=== PATIENT | female | born 1940 | race African-American/Black ===

== ENCOUNTER 2017-12-30 20:54 | Emergency (ER) | payer MEDICARE ==
[~2017-12-30] VITALS: Ht 167.6 cm; Wt 81.8 kg
[2017-12-30 21:38] LABS: HEMATOCRIT 36.9 % (37.0-47.0); HEMOGLOBIN 11.7 g/dl (12.0-16.0); IMMATURE GRANULOCYTES 0.2 % (0.0-5.0); MEAN CELL VOLUME 94.1 fL CALC (80.0-100.0); MEAN CORPUSCULAR HGB 29.8 pG CALC (26.0-32.0); MEAN CORPUSCULAR HGB CONC 31.7 g/L CALC (32.0-36.0); NEUT# 2.53 thou/uL (2.00-7.15); RED BLOOD COUNT 3.92 mill/uL (4.20-5.60); RED CELL DISTRI WIDTH 12.5 % (11.5-15.5)
[2017-12-30 21:53] LABS: URINE BILIRUBIN - DIPSTICK NEGATIVE (NEGATIVE); URINE BLOOD DIPSTICK TRACE-INTACT (NEGATIVE); URINE COLOR YELLOW; URINE GLUCOSE - DIPSTICK NEGATIVE (NEGATIVE); URINE KETONE NEGATIVE (NEGATIVE); URINE NITRITE - DIPSTICK NEGATIVE (Negative); URINE PH 5.5 (4.5-8.0); URINE PROTEIN - DIPSTICK NEGATIVE (NEG-TRACE); URINE SPECIFIC GRAVITY >=1.030; URINE UROBILINOGEN - DIPSTICK 0.2 E.U./dL (0.2)
[2017-12-30 21:55] LABS: URINE CLARITY HAZY; URINE LEUK ESTERASE SMALL (NEGATIVE)
[2017-12-30 21:57] LABS: ALBUMIN 3.7 g/dL (3.2-5.0); ALKALINE PHOSPHATASE 81 u/l (38-126); ANION GAP 10 (6-22 (CALC)); BILIRUBIN, TOTAL 0.2 mg/dL (0.0-1.4); BUN 17 mg/dL (8-23); BUN/CREATININE RATIO 23 (12-20 (CALC)); CARBON DIOXIDE 31 mmol/l (22-30); CHLORIDE 102 mmol/l (95-108); CREATININE 0.8 mg/dL (0.5-1.0); GFR > 60 ML/MIN (>=60 (CALC)); GFR FOR AFR.AMER. > 60 ML/MIN (>=60 (CALC)); SGOT/AST 20 u/l (9-36); SGPT/ALT 23 u/l (11-66); SODIUM 140 mmol/l (137-146); TOTAL PROTEIN 6.6 g/dL (6.3-8.2)
[2017-12-30 22:01] LABS: URINE SQUAMOUS EPITHELIAL CELL FEW EPI/hpf (0-FEW); URINE WBC 20-50 WBC/hpf (0-5)
[2017-12-31] MEDS ORDERED: MEDDOSEPAK PO (00:15)
[2017-12-31] MEDS ORDERED: NAPROSYN500 MG PO (00:15)
[2017-12-31] MEDS ORDERED: FLEXERIL PO (00:15)
[2017-12-31] MEDS ORDERED: CIPROFLOXACN500 MG PO (00:16)
[2017-12-31 00:45] VITALS: BP 160/70
== END 2017-12-31 00:53 | disposition home or self-care (01) ==
LOC: ED 20:54
PROVIDERS: Emergency Medicine
DX: M16.0 Bilateral primary osteoarthritis of hip (principal); N39.0 Urinary tract infection, site not specified; M51.9 Unspecified thoracic, thoracolumbar and lumbosacral intervertebral disc disorder; I10 Essential (primary) hypertension

== ENCOUNTER 2018-02-23 15:33 | Emergency (ER) | payer MEDICARE ==
[~2018-02-23] VITALS: Ht 167.6 cm; Wt 79.5 kg
[~2018-02-23 15:33] MED LIST: CIPROFLOXACN500 MG PO; FLEXERIL PO; MEDDOSEPAK PO; NAPROSYN500 MG PO
[2018-02-23 16:02] LABS: IMMATURE GRANULOCYTES 0.5 % (0.0-5.0); MEAN CELL VOLUME 90.6 fL CALC (80.0-100.0); MEAN CORPUSCULAR HGB 29.4 pG CALC (26.0-32.0); MEAN CORPUSCULAR HGB CONC 32.4 g/L CALC (32.0-36.0); NEUT# 3.88 thou/uL (2.00-7.15); RED BLOOD COUNT 4.8 mill/uL (4.20-5.60)
[2018-02-23 16:04] LABS: HEMATOCRIT 43.5 % (37.0-47.0); HEMOGLOBIN 14.1 g/dl (12.0-16.0)
[2018-02-23 16:13] LABS: ANION GAP 16 (6-22 (CALC)); BUN 13 mg/dL (8-23); BUN/CREATININE RATIO 21 (12-20 (CALC)); CARBON DIOXIDE 25 mmol/l (22-30); CHLORIDE 103 mmol/l (95-108); CREATININE 0.6 mg/dL (0.5-1.0); GFR > 60 ML/MIN (>=60 (CALC)); GFR FOR AFR.AMER. > 60 ML/MIN (>=60 (CALC)); POTASSIUM 3.6 mmol/l (3.5-5.1); SODIUM 140 mmol/l (137-146)
[2018-02-23 17:25] LABS: URINE BILIRUBIN - DIPSTICK NEGATIVE (NEGATIVE); URINE BLOOD DIPSTICK TRACE-INTACT (NEGATIVE); URINE COLOR YELLOW; URINE GLUCOSE - DIPSTICK NEGATIVE (NEGATIVE); URINE KETONE 40 mg/dL (NEGATIVE); URINE LEUK ESTERASE NEGATIVE (NEGATIVE); URINE NITRITE - DIPSTICK NEGATIVE (Negative); URINE PH 7.5 (4.5-8.0); URINE PROTEIN - DIPSTICK 30 mg/dL (NEG-TRACE)
[2018-02-23 17:27] LABS: URINE CLARITY CLEAR
[2018-02-23 17:44] LABS: URINE RBC 0-2 RBC/hpf (0-5); URINE SQUAMOUS EPITHELIAL CELL FEW EPI/hpf (0-FEW); URINE WBC 0-2 WBC/hpf (0-5)
[2018-02-23 18:36] LABS: ALKALINE PHOSPHATASE 119 u/l (38-126); BILIRUBIN, TOTAL 0.9 mg/dL (0.0-1.4); SGPT/ALT 26 u/l (11-66); TOTAL PROTEIN 7.9 g/dL (6.3-8.2)
[2018-02-23 18:37] LABS: ALBUMIN 4.5 g/dL (3.2-5.0); SGOT/AST 37 u/l (9-36)
[2018-02-23 19:31] VITALS: BP 184/81
== END 2018-02-23 19:31 | disposition short-term general hospital (02) ==
LOC: ED 15:33
PROVIDERS: Family Medicine
DX: I63.9 Cerebral infarction, unspecified (principal); R47.01 Aphasia; R29.704 NIHSS score 4; M19.90 Unspecified osteoarthritis, unspecified site; E11.9 Type 2 diabetes mellitus without complications; I10 Essential (primary) hypertension; I25.2 Old myocardial infarction; Z86.73 Personal history of transient ischemic attack (TIA), and cerebral infarction without residual deficits
CPT/HCPCS: Q9967

== ENCOUNTER 2019-09-07 | Emergency (ER) | payer MEDICARE ==
[2019-09-07] MEDS ORDERED: SILVADENE1 % EX ×2 (17:02→17:18)
== END 2019-09-07 17:22 | disposition home or self-care (01) ==
PROC: 2W2LX4Z Dressing of Right Lower Extremity using Bandage (ICD-10-PCS; principal; 2019-09-07)
DX: T24.211A Burn of second degree of right thigh, initial encounter (principal); T24.221A Burn of second degree of right knee, initial encounter; E11.9 Type 2 diabetes mellitus without complications; I10 Essential (primary) hypertension; X10.0XXA Contact with hot drinks, initial encounter

== ENCOUNTER 2019-10-10 00:27 | Observation (INO) | payer MEDICARE ==
[~2019-10-10] VITALS: Ht 167.6 cm; Wt 70.3 kg
[~2019-10-10 00:27] MED LIST changes: +SILVADENE1 % EX
--- NOTE | 2019-10-10 00:28 | NUR ---
BY EMS TO ROOM 13. AWAKE ALERT APPROPRIATE.
--- NOTE | 2019-10-10 00:45 | NUR ---
STROKE ALERT CALLED
--- NOTE | 2019-10-10 00:59 | NUR ---
BLOOD DRAWN...CREAT COMPLETED AT BEDSIDE
--- NOTE | 2019-10-10 01:02 | NUR ---
TELESTROKE ON LINE IN CT. DR JEANNE DUQUE COMPLETED STROKE SCALE. NIH NEG. S/S RESOLVED. NO NEED FOR CTA. WILL LEAVE IN RADIOLOGY FOR CT OF ABD.
[2019-10-10 01:05] LABS: GFR 60 ML/MIN (>=60 (CALC)); GFR FOR AFR.AMER. > 60 ML/MIN (>=60 (CALC))
[2019-10-10] MEDS ORDERED: NORVASC5 M1 PO (01:08)
[2019-10-10 01:10] LABS: HEMOGLOBIN 11.8 g/dl (12.0-16.0); IMMATURE GRANULOCYTES 0.2 % (0.0-5.0); MEAN CELL VOLUME 91.6 fL CALC (80.0-100.0); MEAN CORPUSCULAR HGB 29.2 pG CALC (26.0-32.0); MEAN CORPUSCULAR HGB CONC 31.9 g/dL CAL (32.0-36.0); NEUT# 2.93 thou/uL (2.00-7.15); RED BLOOD COUNT 4.04 mill/uL (4.20-5.60); RED CELL DISTRI WIDTH 12.7 % (11.5-15.5)
[2019-10-10] MEDS ORDERED: MELOXICAM7.5 MG PO (01:10)
[2019-10-10] MEDS ORDERED: ASPIRIN EC LOW81 MG PO (01:11)
[2019-10-10] MEDS ORDERED: ATORVASTATIN CA80 MG PO (01:12)
[2019-10-10] MEDS ORDERED: DONEPEZIL10 MG PO (01:13)
[2019-10-10] MEDS ORDERED: DITROPAN XL5 MG PO (01:15)
[2019-10-10] MEDS ORDERED: TRAZODONE100 MG PO (01:16)
[2019-10-10 01:20] LABS: ALKALINE PHOSPHATASE 99 u/l (38-126); AMYLASE 111 u/l (30-110); BUN 18 mg/dL (8-23); BUN/CREATININE RATIO 22 (12-20 (CALC)); CHLORIDE 97 mmol/l (95-108); CREATININE 0.8 mg/dL (0.5-1.0); ETHYL ALCOHOL 0 mg/dl (0-30); LIPASE 90 u/l (23-300); MAGNESIUM 1.6 mg/dL (1.6-2.3); POTASSIUM 3.5 mmol/l (3.5-5.1); SGOT/AST 40 u/l (9-36); SODIUM 137 mmol/l (137-146); TOTAL PROTEIN 7.3 g/dL (6.3-8.2)
[2019-10-10 01:23] LABS: ACT PARTIAL THROMBO TIME 21.6 SECONDS (20.0-32.5); PROTHROMBIN TIME 10.4 SECONDS (9.0-12.5)
--- NOTE | 2019-10-10 01:25 | NUR ---
CT CALLED, IV SITE NOT WORKING. 2ND LINE STARTED AND 2ND SET OF BLOOD CULTURES DRAWN.
[2019-10-10 01:28] LABS: ANION GAP 8 (6-22 (CALC)); BILIRUBIN, TOTAL 0.3 mg/dL (0.0-1.4); CARBON DIOXIDE 36 mmol/l (22-30)
--- NOTE | 2019-10-10 01:49 | NUR ---
PT RETURNED FROM CT
--- NOTE | 2019-10-10 02:05 | NUR ---
PT VOIDED ON BEDPAN. URINE TO LAB.
[2019-10-10 02:19] LABS: URINE BILIRUBIN - DIPSTICK NEGATIVE (NEGATIVE); URINE BLOOD DIPSTICK NEGATIVE (NEGATIVE); URINE COLOR YELLOW; URINE GLUCOSE - DIPSTICK NEGATIVE (NEGATIVE); URINE KETONE NEGATIVE (NEGATIVE); URINE LEUK ESTERASE TRACE (NEGATIVE); URINE NITRITE - DIPSTICK NEGATIVE (Negative); URINE PROTEIN - DIPSTICK NEGATIVE (NEG-TRACE); URINE SPECIFIC GRAVITY 1.015
[2019-10-10 02:26] LABS: BARBITURATES NEGATIVE (NEGATIVE); COCAINE NEGATIVE (NEGATIVE); METHADONE NEGATIVE (NEGATIVE); OXCYCODONE NEGATIVE (NEGATIVE); TETRAHYDROCANNABIONOL NEGATIVE (NEGATIVE); TRICYLIC ANTIDEPRESSANTS NEGATIVE (NEGATIVE)
--- NOTE | 2019-10-10 02:34 | NUR ---
XRAY AT BEDSIDE FOR PORTABLE CHEST.
--- NOTE | 2019-10-10 02:57 | NUR ---
PT RESTING. REMAINS ALERT/ORIENTED. SAHA. NO C/O. VSS.
--- NOTE | 2019-10-10 03:23 | NUR ---
BED ASSIGNED BUT ANOTHER PT GOING TO SAME UNIT.
[2019-10-10 06:07] VITALS: BP 160/68
--- NOTE | 2019-10-10 06:10 | NUR ---
[id number]- PT. ARRIVED TO THE FLOOR VIA STRETCHER ACCOMPANIED BY ER NURSE. PT. ABLT TO AMBULATE TO BED FROM STRETCHER. ADMISSION ASSESSMENT COMPLETED. IV SITE PATENT TO LAC AND SL. RAC IV SITE REMOVED WITH CATHTER TIP INTACT. PT. ABLE TO MOVE ALL EXTREMETIES WITHOUT DIFFICULTIES. NEURO CHECK WNL. SPEECH IS SLIGHTLY HESITANT AT TIMES. UPDATED ON POC AND VERBALIZES UNDERSTANDING. ENCOURAGED TO CALL FOR ANY NEEDS.
[2019-10-10 07:42] VITALS: BP 133/62
[2019-10-10 08:26] LABS: CHOLESTEROL HDL RATIO 2.3 (<4.4 (CALC))
--- NOTE | 2019-10-10 11:03 | NUR ---
PT IS AWAKE, ALERT, ORIENTED X 3. LUNGS CLEAR, RA. PT NEGATIVE FOR ANY EVIDENCE OF STROKE/TIA. PT DESCRIBES TENSE LIVING CONDITIONS WITH DTR AND NEPHEW.
[2019-10-10 11:29] VITALS: BP 135/77
--- NOTE | 2019-10-10 13:24 | NUR ---
PT PROVIDED MEDS ORDERED, CURRENTLY RECEIVES MAGNESIUM. ICE PACK PROVIDED PER BURNING SENSATION.
[2019-10-10 15:29] VITALS: BP 131/54
--- NOTE | 2019-10-10 17:31 | NUR ---
PT ASSISTED IN SITTING UP STRAIGHTER IN BED PER SUPPER IN FRONT OF HER. PT DENIES DISCOMFORT, NO EVIDENCE OF NEURO ISSUES.
[2019-10-10 19:31] VITALS: BP 115/61
--- NOTE | 2019-10-10 20:00 | NUR ---
ASSESSMENT COMPLETED. NEURO CHECK WNL. DENIES NEEDS/PAIN. IV SITE PATENT AND SL TO LAC. NEURO CHECK WNL, NO CHANGE. ENCOURAGED TO CALL FOR ANY NEEDS. UPDATED ON POC.
[2019-10-11] VITALS (8 sets, daily range): BP systolic 110–165; BP diastolic 55–74
--- NOTE | 2019-10-11 00:02 | NUR ---
PT. RESTING IN BED WITH NO DISTRESS NOTED. NEURO CHECK WNL. NO CHANGED. ENCOURAGED TO CALL FOR ANY NEEDS.
--- NOTE | 2019-10-11 03:50 | NUR ---
RESTING IN BED WITH EYES CLOSED. RESP. EVEN AND UNLABORED.
--- NOTE | 2019-10-11 05:10 | NUR ---
PT. RESTING IN BED AND DENIES NEEDS. PT. REPORTS NO BM THIS EVENING WITH LAST ONE BEING 10/09/19; OFFERRED PRUNE JUICE AND PT. DECLINES AND REPORTS SHE NORMALLY ONLY GOES EVERY FEW DAYS.
[2019-10-11 05:15] LABS: HEMATOCRIT 33.3 % (37.0-47.0); HEMOGLOBIN 10.5 g/dl (12.0-16.0); MEAN CELL VOLUME 92.8 fL CALC (80.0-100.0); MEAN CORPUSCULAR HGB 29.2 pG CALC (26.0-32.0); MEAN CORPUSCULAR HGB CONC 31.5 g/dL CAL (32.0-36.0); RED BLOOD COUNT 3.59 mill/uL (4.20-5.60); RED CELL DISTRI WIDTH 12.9 % (11.5-15.5)
[2019-10-11 05:50] LABS: ANION GAP 8 (6-22 (CALC)); BUN 23 mg/dL (8-23); BUN/CREATININE RATIO 34 (12-20 (CALC)); CARBON DIOXIDE 30 mmol/l (22-30); CHLORIDE 101 mmol/l (95-108); CREATININE 0.7 mg/dL (0.5-1.0); GFR > 60 ML/MIN (>=60 (CALC)); GFR FOR AFR.AMER. > 60 ML/MIN (>=60 (CALC)); MAGNESIUM 1.7 mg/dL (1.6-2.3); POTASSIUM 3.8 mmol/l (3.5-5.1); SODIUM 135 mmol/l (137-146)
--- NOTE | 2019-10-11 07:25 | NUR ---
CHANGE OF SHIFT REPORT RECEIVED FROM LINDA ROSARIO. PT SITTING UP IN BED. PT ABLE TO MAKE HER NEEDS KNOWN. PT MOVES ALL EXTREMITIES WITH NO DEFICITS NOTED. STRESS ANALYST WILL CONTINUE TO MONITOR.
--- NOTE | 2019-10-11 08:00 | NUR ---
OSVALDO, FROM RADIOLOGY [facility] AND STATES THAT PT CANNOT HAVE MRI WITH CONTRAST WITHIN 24 HOURS OF USING CONTRAST. PT HAD A CT WITH CONTRAST ON 10/10/2019. JESSI IGNACIO NOTIFIED.
--- NOTE | 2019-10-11 10:14 | NUR ---
OSVALDO IN RADIOLOGY NOTFIED THAT DR MALLORY ADVISES THAT RADIOLOGY SHOULD FOLLOW MRI STROKE PROTOCOL. OSVALDO VERBALIZED UNDERSTANDING.
--- NOTE | 2019-10-11 12:35 | NUR ---
PT IS BACK FROM RADIOLOGY SITTING UP EATING LUNCH. PT DENIES PAIN OR DISCOMFORT. PT DENIES HEADACHE, BLURRED VISION OR NUMBNESS. SPEECH IS CLEAR. CALL LIGHT WITHIN EASY REACH. MACHINE TECHNICIAN WILL CONTINUE TO MONITOR
--- NOTE | 2019-10-11 13:30 | NUR ---
PT OFF FLOOR TO ULTRA SOUND
--- NOTE | 2019-10-11 15:46 | NUR ---
PT RESTING COMFORTABLY IN ROOM. PT DENIES PAIN, HEADACHE, DIZZINESS, DOUBLE VSION, NUMBNESS. PT'S SPEECH IS CLEAR. PT IS ABLE TO MOVE ALL EXTREMITIES. NO DRIFTS NOTED. [employer] PL[employer] SWEATER OPERATOR WILL CONTINUE TO MONITOR
--- NOTE | 2019-10-11 20:00 | NUR ---
PATIENT RESTING IN BED TALKING ON THE PHONE. AWAKE ALERT WITH SOME WORD FINDING DIFFICULTY. PATIENT WITH SOME CONFUSION TO THE DATE AND TIME ATTEMPTED TO REORIENT PATIENT TO DATE AND TIME. TELE MONIOTOR IN PLACE. SALINE LOCK TO LEFT AC INTACT. DENIES ANY PAIN AT THIS TIME. SAFETY PRECAUTIONS REINFORCED. CALL LIGHT IN REACH. WILL CONT TO MONITOR.
--- NOTE | 2019-10-12 01:10 | NUR ---
PATIENT RESTING IN BED-APPEARS SLEEPING AT THIS TIME WITH EYES CLOSED. RESPS ARE EVEN AND UNLABORED. CALL LIGHT IN REACH. WILL CONT TO MONITOR.
[2019-10-12 03:30] VITALS: BP 127/68
--- NOTE | 2019-10-12 05:16 | NUR ---
PATIENT RESTING IN BED WITH EYES CLOSED. APPEARS SLEEPING. RESPS ARE EVEN AND UNLABORED. TELE MONITOR IN PLACE. CALL LIGHT IN REACH. WILL CONT TO MONITOR,
--- NOTE | 2019-10-12 07:30 | NUR ---
CHANGE OF SHIFT REPORT RECEIVED FROM LINDA LEONG. PT RESTING COMFORTABLY ABLE TO MAKE HER NEEDS KNOWN. WOUND CARE NURSE WILL CONTINUE TO MONITOR
[2019-10-12 09:30] VITALS: BP 139/70
[2019-10-12] MEDS ORDERED: PLAVIX75 MG PO (10:32)
[2019-10-12 11:58] VITALS: BP 175/68
--- NOTE | 2019-10-12 13:04 | NUR ---
PCG NOTIFIED OF DISCHARGE ORDERS. PCG REQUESTING THAT PT BE SENT HOME VIA CAB WHIC SHE WILL PAY FOR WHEN PT GET'S TO HER DESTINATION. PCG VERBALIZED UNDERSTANDING OF DISCHARGE ORDER AND AGREES TO CALL [employer]ER BACK IF SHE HAS ANY QUESTIONS
--- NOTE | 2019-10-12 13:35 | NUR ---
Patient was able to transfer from bed to standing independently in order to perform gait training. Pt ambulated without AD and no LOB occured during ambulation.
--- NOTE | 2019-10-12 13:46 | NUR ---
OH STATES THAT SHE WANTS [facility] [facility] TO [facility] BLASTING PT. [facility] CALLED WITH ETA OF 15 TO 20 MINUTES.
--- NOTE | 2019-10-12 15:08 | NUR ---
Discharge instructions given to pt and PCG. Patient verbalizes understanding of same. Discharged in stable condition via Taxi to Home with [employer]. All belongings sent with pt.
== END 2019-10-12 15:09 ==
LOC: ED 00:27 → ED-I 00:44 → ED 02:54 → MS2 02:55 → ED-I 02:55 → MS2 03:13
PROVIDERS: Nurse Practitioner Family; ADMIT Internal Medicine; ATTEND Internal Medicine
DX: I65.21 Occlusion and stenosis of right carotid artery (principal); I10 Essential (primary) hypertension; E11.9 Type 2 diabetes mellitus without complications; F03.90 Unspecified dementia, unspecified severity, without behavioral disturbance, psychotic disturbance, mood disturbance, and anxiety; K80.20 Calculus of gallbladder without cholecystitis without obstruction; E78.5 Hyperlipidemia, unspecified; E83.42 Hypomagnesemia; F17.210 Nicotine dependence, cigarettes, uncomplicated; Z86.73 Personal history of transient ischemic attack (TIA), and cerebral infarction without residual deficits
CPT/HCPCS: G0378; J3475; Q9967

== ENCOUNTER 2019-10-23 14:39 | Emergency (ER) | payer MEDICARE ==
[~2019-10-23 14:39] MED LIST changes: +ASPIRIN EC LOW81 MG PO; +ATORVASTATIN CA80 MG PO; +DITROPAN XL5 MG PO; +DONEPEZIL10 MG PO; +MELOXICAM7.5 MG PO; +NORVASC5 M1 PO; +PLAVIX75 MG PO; +TRAZODONE100 MG PO
[2019-10-23 16:39] LABS: HEMATOCRIT 35.6 % (37.0-47.0); HEMOGLOBIN 11.3 g/dl (12.0-16.0); MEAN CELL VOLUME 92.5 fL CALC (80.0-100.0); MEAN CORPUSCULAR HGB 29.4 pG CALC (26.0-32.0); MEAN CORPUSCULAR HGB CONC 31.7 g/dL CAL (32.0-36.0); NEUT# 2.13 thou/uL (2.00-7.15); RED BLOOD COUNT 3.85 mill/uL (4.20-5.60); RED CELL DISTRI WIDTH 13.1 % (11.5-15.5)
[2019-10-23 16:58] LABS: ALBUMIN 3.9 g/dL (3.2-5.0); ALKALINE PHOSPHATASE 99 u/l (38-126); ANION GAP 7 (6-22 (CALC)); BUN 19 mg/dL (8-23); BUN/CREATININE RATIO 29 (12-20 (CALC)); CARBON DIOXIDE 33 mmol/l (22-30); CHLORIDE 102 mmol/l (95-108); CREATININE 0.7 mg/dL (0.5-1.0); GFR > 60 ML/MIN (>=60 (CALC)); GFR FOR AFR.AMER. > 60 ML/MIN (>=60 (CALC)); POTASSIUM 4.2 mmol/l (3.5-5.1); SGOT/AST 43 u/l (9-36); SODIUM 138 mmol/l (137-146)
[2019-10-23 17:00] LABS: BILIRUBIN, TOTAL 0.6 mg/dL (0.0-1.4)
[2019-10-23] MEDS ORDERED: TRAMADOL HYDROC50 MG PO (17:17)
[2019-10-23 17:20] VITALS: BP 132/68
== END 2019-10-23 17:40 | disposition home or self-care (01) ==
LOC: ED 14:39
DX: E11.42 Type 2 diabetes mellitus with diabetic polyneuropathy (principal); I10 Essential (primary) hypertension; Z86.73 Personal history of transient ischemic attack (TIA), and cerebral infarction without residual deficits

== ENCOUNTER 2020-03-30 20:40 | Emergency (ER) | payer MEDICARE ==
[~2020-03-30] VITALS: Ht 167.6 cm; Wt 70.5 kg
[~2020-03-30 20:40] MED LIST changes: +TRAMADOL HYDROC50 MG PO
[2020-03-30 21:44] LABS: URINE BILIRUBIN - DIPSTICK NEGATIVE (NEGATIVE); URINE BLOOD DIPSTICK LARGE (NEGATIVE); URINE COLOR YELLOW; URINE GLUCOSE - DIPSTICK NEGATIVE (NEGATIVE); URINE KETONE 40 mg/dL (NEGATIVE); URINE LEUK ESTERASE NEGATIVE (NEGATIVE); URINE NITRITE - DIPSTICK NEGATIVE (Negative); URINE PROTEIN - DIPSTICK 30 mg/dL (NEG-TRACE); URINE SPECIFIC GRAVITY >=1.030; URINE UROBILINOGEN - DIPSTICK 0.2 E.U./dL (0.2)
[2020-03-30 21:44] LABS: HEMATOCRIT 36.5 % (37.0-47.0); HEMOGLOBIN 11.8 g/dl (12.0-16.0); IMMATURE GRANULOCYTES 0.2 % (0.0-5.0); MEAN CELL VOLUME 91.9 fL CALC (80.0-100.0); MEAN CORPUSCULAR HGB 29.7 pG CALC (26.0-32.0); MEAN CORPUSCULAR HGB CONC 32.3 g/dL CAL (32.0-36.0); RED BLOOD COUNT 3.97 mill/uL (4.20-5.60); RED CELL DISTRI WIDTH 11.9 % (11.5-15.5)
[2020-03-30 21:54] LABS: URINE RBC 25-50 RBC/hpf (0-5); URINE SQUAMOUS EPITHELIAL CELL RARE EPI/hpf (0-FEW)
[2020-03-30 22:00] LABS: ALBUMIN 3.7 g/dL (3.2-5.0); ALKALINE PHOSPHATASE 90 u/l (38-126); AMYLASE 55 u/l (30-110); ANION GAP 7 (6-22 (CALC)); BILIRUBIN, TOTAL 0.4 mg/dL (0.0-1.4); BUN 14 mg/dL (8-23); BUN/CREATININE RATIO 20 (12-20 (CALC)); CARBON DIOXIDE 29 mmol/l (22-30); CHLORIDE 104 mmol/l (95-108); CREATININE 0.7 mg/dL (0.5-1.0); GFR > 60 ML/MIN (>=60 (CALC)); GFR FOR AFR.AMER. > 60 ML/MIN (>=60 (CALC)); LIPASE 99 u/l (23-300); POTASSIUM 3.4 mmol/l (3.5-5.1); SGOT/AST 38 u/l (9-36); SODIUM 136 mmol/l (137-146); TOTAL PROTEIN 6.5 g/dL (6.3-8.2)
[2020-03-30] MEDS ORDERED: MAGNESIUM296 ML/BTL PO (22:10)
[2020-03-30] MEDS ORDERED: MIRALAX17 GM PO (22:10)
[2020-03-30 22:18] VITALS: BP 134/98
== END 2020-03-30 22:55 | disposition home or self-care (01) ==
LOC: ED 20:40
PROVIDERS: Family Medicine
DX: K59.00 Constipation, unspecified (principal); F03.90 Unspecified dementia, unspecified severity, without behavioral disturbance, psychotic disturbance, mood disturbance, and anxiety; E11.9 Type 2 diabetes mellitus without complications; I10 Essential (primary) hypertension; Z86.73 Personal history of transient ischemic attack (TIA), and cerebral infarction without residual deficits; Z96.0 Presence of urogenital implants

== ENCOUNTER 2020-09-19 06:40 | Emergency (ER) | payer MEDICARE ==
[~2020-09-19 06:40] MED LIST changes: +MAGNESIUM296 ML/BTL PO; +MIRALAX17 GM PO
[2020-09-19 07:34] LABS: HEMOGLOBIN 13.2 g/dl (12.0-16.0); IMMATURE GRANULOCYTES 0.3 % (0.0-5.0); MEAN CELL VOLUME 95.2 fL CALC (80.0-100.0); MEAN CORPUSCULAR HGB 29.9 pG CALC (26.0-32.0); MEAN CORPUSCULAR HGB CONC 31.4 g/dL CAL (32.0-36.0); NEUT# 4.14 thou/uL (2.00-7.15); RED BLOOD COUNT 4.41 mill/uL (4.20-5.60); RED CELL DISTRI WIDTH 12.9 % (11.5-15.5)
[2020-09-19] MEDS ORDERED: VENTOLIN H108 MCG/AC PO (07:39)
[2020-09-19] MEDS ORDERED: PREDNISONE20 MG PO (07:39)
[2020-09-19 07:50] LABS: ALBUMIN 4.1 g/dL (3.2-5.0); ALKALINE PHOSPHATASE 112 u/l (38-126); ANION GAP 7 (6-22 (CALC)); BUN 13 mg/dL (8-23); BUN/CREATININE RATIO 19 (12-20 (CALC)); CARBON DIOXIDE 32 mmol/l (22-30); CHLORIDE 100 mmol/l (95-108); CREATININE 0.7 mg/dL (0.5-1.0); GFR > 60 ML/MIN (>=60 (CALC)); GFR FOR AFR.AMER. > 60 ML/MIN (>=60 (CALC)); POTASSIUM 3.5 mmol/l (3.5-5.1); SGOT/AST 47 u/l (9-36); SODIUM 136 mmol/l (137-146); TOTAL PROTEIN 7.4 g/dL (6.3-8.2)
[2020-09-19 07:51] LABS: BILIRUBIN, TOTAL 0.7 mg/dL (0.0-1.4)
[2020-09-19 08:01] LABS: MYOGLOBIN 53 ng/mL (0 - 62)
[2020-09-19 09:32] VITALS: BP 140/63
== END 2020-09-19 09:55 | disposition home or self-care (01) ==
LOC: ED 06:40
PROVIDERS: Emergency Medicine
DX: J45.901 Unspecified asthma with (acute) exacerbation (principal); J43.9 Emphysema, unspecified; E11.9 Type 2 diabetes mellitus without complications; I10 Essential (primary) hypertension; F17.200 Nicotine dependence, unspecified, uncomplicated; Z86.73 Personal history of transient ischemic attack (TIA), and cerebral infarction without residual deficits; Z20.822 Contact with and (suspected) exposure to COVID-19